=== PATIENT | male | born 1935 | race African-American/Black ===

== ENCOUNTER 2017-02-04 11:20 | Observation (INO) ==
[2017-02-04 12:23] LABS: Basophils % 0.3 %; Eosinophils # 0.2 K/mcL (0.0-0.6); Eosinophils % 1.7 %; Hematocrit 44.8 % (37.5-50.1); Hemoglobin 13.9 g/dL (12.9-16.9); Immature Granulocytes % 0.3 % (0-4); Lymphocytes # 1.8 K/mcL (0.6-4.6); Lymphocytes % 19.8 %; Mean Corpuscular Hemoglobin 25.1 pg (28.0-33.3); Mean Platelet Volume 9.2 fL (9.4-12.4); Monocytes # 0.8 K/mcL (0.0-1.3); Monocytes % 8.5 %; Neutrophils # 6.2 K/mcL (1.6-8.9); Platelet Count 241 K/mcL (140-400); Red Blood Count 5.53 M/mcL (4.19-5.50); Red Cell Distribution Width 15.1 % (11.5-14.5); Segmented Neutrophils % 69.4 %
[2017-02-04 12:36] LABS: Alanine Aminotransferase 18 Units/L (0-55); Albumin 4.1 g/dL (3.5-5.0); Albumin/Globulin Ratio 1.1 (1.1-2.2); Alkaline Phosphatase 80 Units/L (38-126); Aspartate Amino Transferase 15 Units/L (5-34); BUN/Creatinine Ratio 12 (6-26); Bilirubin,Total 0.5 mg/dL (0.2-1.2); Blood Urea Nitrogen 16 mg/dL (8-26); Calcium 10.2 mg/dL (8.6-10.8); Carbon Dioxide 25 mEq/L (19-29); Chloride 102 mEq/L (98-109); Globulin 3.8 g/dL (2.4-3.5); Glucose 158 mg/dL (70-99); Osmolality,Calculated 284 (280-300); Potassium 4.5 mEq/L (3.5-4.5); Sodium 135 mEq/L (136-145); Total Protein 7.9 g/dL (6.0-8.3); eGFR For African Americans > 60 (> 60); eGFR For Non-African Americans 51 (> 60)
[2017-02-04] MEDS ORDERED: Ipratropium/Albuterol Neb 3 ML IH ONE (12:44)
[2017-02-04] MEDS ORDERED: methylPREDNISolone 125 MG/2 ML VIAL IVP ONE (12:44)
--- NOTE | 2017-02-04 12:47 | Emergency Department Note ---
Disposition Clinical Impression: Acute exacerbation of chronic obstructive airways disease, Exertional dyspnea Disposition: Admitted As Inpatient Condition: Fair Referrals: NO,PCP [Non-Partnered Physician] - Forms: ED Satisfaction Letter Time of Disposition: 12:56 SOB HPI - General Chief Complaint: ED Shortness of Breath/Dyspnea Stated Complaint: JEFF Time Seen by Provider: 02/04/17 12:37 Source: patient Mode of arrival: ambulatory Limitations: no limitations Nursing Notes Reviewed: Yes Vital Signs Reviewed: Yes - History of Present Illness 82-year-old comes in with cough 5 months with increasing exertional dyspnea. Patient states when he walks a distance becomes very short of breath. Pt Subjective Complaint: shortness of breath, cough Onset (ago): day(s) Context: other (Patient has a history of smoking many years but stopped 20 years ago has no lung diagnosis is on no inhalers. Had a cardiac catheter 20 years ago but nothing recently been having increasing exertional dyspnea) Severity: moderate Consistency/Duration: constant Improves with: nothing Worsens with: exertion Associated symptoms: Reports: cough Treatment prior to arrival: none Cough present: Yes Cough Description: Involuntary Cough Frequency: Intermittent - Related Data Home Medications Medication Instructions Recorded Confirmed Amlodipine Besylate [Norvasc] 10 mg PO 03/03/15 03/03/15 Aspirin Enteric Coated [Aspirin EC] 03/03/15 03/03/15 GlipiZIDE [Glucotrol] 10 mg PO 03/03/15 03/03/15 Isosorbide DInitrate 03/03/15 03/03/15 Metoprolol Succinate [Toprol Xl] 03/03/15 03/03/15 Rosuvastatin Calcium [Crestor] 10 mg PO 03/03/15 03/03/15 Allergies Allergy/AdvReac Type Severity Reaction Status Date / Time No Known Allergies Allergy Verified 02/04/17 11:27 All systems ED: reviewed and negative except as stated. Constitutional: Denies: fever, chills, weakness, weight change Eyes: Denies: eye pain, eye discharge, vision change ENT ED: Denies: ear pain, throat pain, dental pain, hearing loss, epistaxis, congestion, dysphagia Cardiovascular: Denies: chest pain, palpitations, dyspnea on exertion, edema, syncope Respiratory: Reports: cough, dyspnea. Denies: wheezes, hemoptysis, stridor Gastrointestinal: Denies: abdominal pain, nausea, vomiting, diarrhea, constipation, hematemesis, melena, hematochezia Genitourinary: Denies: urgency, dysuria, frequency, hematuria Musculoskeletal: Denies: back pain, neck pain, arthralgia, myalgia Integumentary: Denies: rash, abrasion, lesions Neurological: Denies: headache, weakness, numbness, paresthesias, confusion, abnormal gait, vertigo Psychiatric: Denies: anxiety, depression, suicidal thoughts, homicidal thoughts , auditory hallucinations, visual hallucinations Endocrine: Denies: fatigue Hematological/Lymphatic: Denies: easy bleeding, easy bruising Allergic/Immunologic: Denies: facial swelling, urticaria Past Medical History - Past Medical History Medical history: Reports: coronary artery disease, diabetes, hyperlipidemia, hypertension, kidney stones, renal disease Surgical history: Reports: other Psychiatric history: Reports: no psych history - Social History Smoking Status: Former smoker Smokeless Tobacco Status: No Alcohol use: Reports: none Drug use: Reports: none Physical Exam - General Limitations: no limitations General appearance: alert - Head Head exam: atraumatic, normocephalic, normal inspection - Eye Eye exam: Present: normal appearance, PERRL, EOMI - ENT ENT exam: normal exam, normal oropharynx, mucous membranes moist - Neck Neck exam: Present: normal inspection, full ROM, trachea midline - Chest Chest inspection: Present: normal inspection, symmetric chest wall rise - Respiratory Respiratory exam: Present: wheezes - Cardiovascular Cardiovascular exam: Present: regular rate, normal rhythm, normal heart sounds - Abdominal Exam Abdominal exam: Present: soft, Non-Tender. Absent: tenderness, distention, guarding, rebound, rigidity - Extremities Exam Extremities exam: Present: normal inspection, full ROM. Absent: tenderness, pedal edema - Expanded Lower Extremity Exam Neurovascular/Tendon exam: Absent: motor deficit, sensory deficit, tendon deficit Gait: observed and normal - Back Exam Back exam: Present: normal inspection, full ROM. Absent: tenderness - Neurological Exam Neurological exam: Present: alert, oriented X3 - Psychiatric Psychiatric exam: Present: normal affect, normal mood - Skin Skin exam: Present: warm, dry, intact, normal color Course - Reevaluation(s) Reevaluation #1: 82-year-old with no long history comes in with increasing shortness of breath. On exam he does have wheezes. Chest x-ray does show COPD. Also has a component of exertional dyspnea. His initial blood pressure was elevated a repeat pressure was 157/75. Midrin for further evaluation and treatment. Time: 13:08 - Consultations Consultation #1: Discussed with Dr. Hunter, it. Time: 13:08 Vital Signs Temperature 98.4 F 02/04/17 11:27 Pulse Rate 65 02/04/17 11:27 Respiratory Rate 24 02/04/17 11:27 Blood Pressure 183/49 02/04/17 11:27 O2 Sat by Pulse Oximetry 97 02/04/17 11:27 Temperature 98.4 F 02/04/17 11:27 Pulse Rate 51 02/04/17 13:13 Respiratory Rate 16 02/04/17 13:18 Blood Pressure 154/75 02/04/17 13:13 O2 Sat by Pulse Oximetry 99 02/04/17 13:18 Oxygen Delivery Oxygen Delivery Room Air Shortness of Breath/Dyspnea - Lab Data Lab results reviewed: Yes I reviewed the patient's lab results. Result diagrams: 02/04/17 12:11 02/04/17 12:11 Lab Results 02/04/17 02/04/17 02/04/17 Range/Units 12:11 12:11 12:11 WBC 9.0 (4.3-11.1) K/mcL RBC 5.53 H (4.19-5.50) M/mcL Hgb 13.9 (12.9-16.9) g/dL Hct 44.8 (37.5-50.1) % MCV 81.0 L (83.0-100.0) fL MCH 25.1 L (28.0-33.3) pg MCHC 31.0 L (31.6-35.5) g/dL RDW 15.1 H (11.5-14.5) % Plt Count 241 (140-400) K/mcL MPV 9.2 L (9.4-12.4) fL Immature Gran % 0.3 (0-4) % Seg Neutrophils % 69.4 % Lymphocytes % 19.8 % Monocytes % 8.5 % Eosinophils % 1.7 % Basophils % 0.3 % Neutrophils # 6.2 (1.6-8.9) K/mcL Lymphocytes # 1.8 (0.6-4.6) K/mcL Monocytes # 0.8 (0.0-1.3) K/mcL Eosinophils # 0.2 (0.0-0.6) K/mcL Basophils # 0.0 (0.0-0.2) K/mcL Sodium 135 L (136-145) mEq/L Potassium 4.5 (3.5-4.5) mEq/L Chloride 102 (98-109) mEq/L Carbon Dioxide 25 (19-29) mEq/L BUN 16 (8-26) mg/dL Creatinine 1.34 H (0.72-1.25) mg/dL Est GFR ( Amer) > 60 (> 60) Est GFR (Non-Af Amer) 51 L (> 60) BUN/Creatinine Ratio 12 (6-26) Glucose 158 H (70-99) mg/dL Calculated Osmolality 284 (280-300) Calcium 10.2 (8.6-10.8) mg/dL Total Bilirubin 0.5 (0.2-1.2) mg/dL AST 15 (5-34) Units/L ALT 18 (0-55) Units/L Alkaline Phosphatase 80 (38-126) Units/L Troponin I 0.01 (0-0.03) ng/mL B-Natriuretic Peptide (0-100) pg/mL Serum Total Protein 7.9 (6.0-8.3) g/dL Albumin 4.1 (3.5-5.0) g/dL Globulin 3.8 H (2.4-3.5) g/dL Albumin/Globulin Ratio 1.1 (1.1-2.2) TSH 2.690 (0.350-4.840) mcIU/mL 02/04/17 Range/Units 12:11 WBC (4.3-11.1) K/mcL RBC (4.19-5.50) M/mcL Hgb (12.9-16.9) g/dL Hct (37.5-50.1) % MCV (83.0-100.0) fL MCH (28.0-33.3) pg MCHC (31.6-35.5) g/dL RDW (11.5-14.5) % Plt Count (140-400) K/mcL MPV (9.4-12.4) fL Immature Gran % (0-4) % Seg Neutrophils % % Lymphocytes % % Monocytes % % Eosinophils % % Basophils % % Neutrophils # (1.6-8.9) K/mcL Lymphocytes # (0.6-4.6) K/mcL Monocytes # (0.0-1.3) K/mcL Eosinophils # (0.0-0.6) K/mcL Basophils # (0.0-0.2) K/mcL Sodium (136-145) mEq/L Potassium (3.5-4.5) mEq/L Chloride (98-109) mEq/L Carbon Dioxide (19-29) mEq/L BUN (8-26) mg/dL Creatinine (0.72-1.25) mg/dL Est GFR ( Amer) (> 60) Est GFR (Non-Af Amer) (> 60) BUN/Creatinine Ratio (6-26) Glucose (70-99) mg/dL Calculated Osmolality (280-300) Calcium (8.6-10.8) mg/dL Total Bilirubin (0.2-1.2) mg/dL AST (5-34) Units/L ALT (0-55) Units/L Alkaline Phosphatase (38-126) Units/L Troponin I (0-0.03) ng/mL B-Natriuretic Peptide 58 (0-100) pg/mL Serum Total Protein (6.0-8.3) g/dL Albumin (3.5-5.0) g/dL Globulin (2.4-3.5) g/dL Albumin/Globulin Ratio (1.1-2.2) TSH (0.350-4.840) mcIU/mL - Radiology Data Radiology results reviewed: Yes I reviewed the patient's radiology results. Chest X-Ray 02/04/17 11:31 IMPRESSION: Cardiomegaly and COPD with no acute finding in the chest. D/ / Evangelist Young MD / Evangelist Young MD Interpreting Provider: Evangelist Young MD
[2017-02-04] MEDS ORDERED: Acetaminophen 325 MG TABLET PO PRN (15:39)
[2017-02-04] MEDS ORDERED: Naloxone 0.4 MG/ML INJ IVP PRN (15:39)
[2017-02-04] MEDS ORDERED: Albuterol 2.5 MG/3 ML NEBULIZER IH PRN (15:43)
[2017-02-04] MEDS ORDERED: *HR* Dextrose 50 % in Water (Syg) 50 ML SYRINGE IVP PRN (15:44)
[2017-02-04] MEDS ORDERED: Dextrose Gel 15 GM PO PRN ×2 (15:44)
[2017-02-04] MEDS ORDERED: D5% in Water 1,000 ML IVC PRN (15:44)
--- NOTE | 2017-02-04 15:50 | Internal Med History&Physical ---
Date of Encounter: 02/04/17 Time of Encounter: 15:49 Assessment and Plan (1) Acute exacerbation of chronic obstructive airways disease Current visit: Yes Status: Acute 1 patient has a past history of cigarette smoking chest x-rays indicative of chronic COPD changes. He has been experiencing increasing short of breath on exertion as well as nonproductive cough. We will continue with bronchodilators 2 oxygen as needed to maintain SPO2 greater than 92% 3 continue with steroids to taper (2) HTN (hypertension) Current visit: No Status: Chronic 1 continue with home medications Qualifiers: Hypertension type: essential hypertension Qualified Code(s): I10 - Essential (primary) hypertension (3) Diabetes mellitus Current visit: Yes Status: Acute 1 Accu-Cheks before meals at bedtime for sinus scale insulin-hold oral antidiabetic and resume at discharge Qualifiers: Diabetes mellitus type: type 2 Diabetes mellitus complication status: with kidney complications Diabetes mellitus complication detail: with chronic kidney disease Diabetes mellitus terminal supervisor insulin use: without snf use Chronic kidney disease stage: stage 2 (mild) Qualified Code(s): E11.22 - Type 2 diabetes mellitus with diabetic chronic kidney disease; N18.2 - Chronic kidney disease, stage 2 (mild) (4) CKD (chronic kidney disease) stage 2, GFR 60-89 ml/min Current visit: No Status: Chronic [place] creatinine is 1.3. Baseline is around 1.2 we will continue to monitor creatinine 2 avoid nephrotoxins (5) CAD (coronary artery disease) Current visit: No Status: Chronic 1 history of coronary disease will continue with aspirin beta margarita statin and emily Qualifiers: Coronary Disease-Associated Artery/Lesion type: [place] artery [place] vs. transplanted heart: [place] heart Associated angina: without angina Qualified Code(s): I25.10 - Atherosclerotic heart disease of [place] coronary artery without angina pectoris Internal Medicine - H&P: HPI Chief complaint: SOB Admitted From: Emergency Dept Plans for Post Hospital Care: Home History of present illness: Mr. Martin is a 82 year old male with past medical history of diabetes hypertension CK D stage III hyperlipidemia coronary artery disease. The patient has been spacing increasing shortness of breath on exertion since Friday. He also has had difficulty sleeping at night and would frequently wake up due to shortness of breath. He also has a nonproductive cough which she states has been going on for the past few months. He denies any fevers chills nausea vomiting diarrhea abdominal pain or chest pain. He does admit to some wheezing. His shortness of breath improves with rest. Today his shortness of breath has worsened and was unable to recover even with rest. He does have a past history of smoking which he states he quit 20 years ago and denies any diagnosis of COPD. He is not on any oxygen or inhalers at home. Upon presentation to the ER patient was given Solu-Medrol as well as breathing treatments which did improve his respiratory state. Lab work was unremarkable chest x-ray just showed cardiomegaly with chronic COPD findings. He has been admitted for further workup and evaluation. Presently patient does not appear to be in any respiratory distress. He is actually ambulating in his room he denies any chest pain or shortness of breath. His lung sounds are clear and diminished throughout. Heart sounds are regular S1 and S2 with no rubs clicks Murmurs Noted Abdomen Soft Nontender No Lower Extremity Edema Noted. Presently He Is Hemodynamics Stable. I Reviewed This Case with who agrees with plan. Past Med Surg Social Fam HX - Past Medical History Medical history: coronary artery disease, diabetes, hyperlipidemia, hypertension , kidney stones, renal disease Psychiatric history: no psych history - Past Surgical History Surgical History: other - Social History Smoking Status: Former smoker Smokeless Tobacco Status: No Alcohol use: none Drug use: none - Family History Mother Living Status: Cause of : [place] Hx Family Cardiac Disorders: Yes Hx Family Respiratory Disorders: No Hx Family Cancer: No Hx Family GI Disorders: No Hx Family Genitourinary Disorders: No Hx Family Endocrine Disorder: No Hx Family Musculoskeletal Disorders: No Hx Family Neuromuscular Disorders: No Hx Family Neurologic Disorders: No Hx Family HEENT Disorders: No Hx Family Autoimmune Disorders: No Hx Family Reproductive Disorders: No Hx Family Psychosocial Disorders: No Hx Family Medical Disorders: No Father Living Status: Cause of : [place] Hx Family Cardiac Disorders: Yes Hx Family Respiratory Disorders: No Hx Family Cancer: No Hx Family GI Disorders: No Hx Family Genitourinary Disorders: No Hx Family Endocrine Disorder: No Hx Family Musculoskeletal Disorders: No Hx Family Neuromuscular Disorders: No Hx Family Neurologic Disorders: No Hx Family HEENT Disorders: No Hx Family Autoimmune Disorders: No Hx Family Reproductive Disorders: No Hx Family Psychosocial Disorders: No Hx Family Medical Disorders: No Internal Medicine - H&P: Meds Amlodipine Besylate [Norvasc] 10 mg PO DAILY 03/03/15 [History] Aspirin Enteric Coated [Aspirin EC] 81 mg PO DAILY 03/03/15 [History] GlipiZIDE [Glucotrol] 10 mg PO BID 03/03/15 [History] Isosorbide DInitrate [Isosorbide Dinitrate] 10 mg PO TID 03/03/15 [History] Metoprolol Succinate [Toprol Xl] 200 mg PO DAILY 03/03/15 [History] Atorvastatin [Lipitor] 10 mg PO HS 02/04/17 [History] Benazepril HCl [Lotensin] 40 mg PO BID 02/04/17 [History] Cholecalciferol (D-3) [Vitamin D] 1,000 unit PO DAILY 02/04/17 [History] Metformin HCl [Glucophage] 1,000 mg PO BID 02/04/17 [History] Triamterene/HCTZ 37.5/25mg [Dyazide] 1 tab PO DAILY 02/04/17 [History] Allergies No Known Allergies Allergy (Verified 02/04/17 11:27) All Systems PM: A 10-system review of systems was performed and is negative for pertinent findings except as documented above in the HPI. - Constitutional Constitutional: no chills, no fever(s), no night sweats - EENT Eyes: no change in vision, no discharge, no pain, no photophobia Nose, mouth and throat: no dysphagia, no nasal discharge, no neck pain, no sore throat - Cardiovascular Cardiovascular ROS IM: dyspnea on exertion, paroxysmal nocturnal dyspnea, no chest pain, no diaphoresis, no dyspnea, no lightheadedness, no palpitations, no syncope - Respiratory Respiratory: cough, wheezing - Gastrointestinal Gastrointestinal: no abdominal pain, no diarrhea, no hematemesis, no hematochezia, no melena, no nausea, no vomiting - Musculoskeletal Musculoskeletal ROS IM: no numbness, no tingling - Integumentary Integumentary IM: no rash, no unusual bruising - Neurological Neurological ROS: no confusion, no convulsions, no focal weakness, no numbness, no tingling, no tremor(s) - Hematologic/Lymphatic Hematologic/Lymphatic: no easy bruising - Constitutional Vitals: Temp Pulse Resp BP Pulse Ox 98.3 F 55 16 156/80 98 02/04/17 15:23 07/11/17 15:23 02/04/17 15:23 02/04/17 15:23 02/04/17 15:23 General appearance: Present: A&O X 3, answers questions appropriately - Head Head exam: Present: atraumatic, normocephalic - Eye Eye exam: Present: PERRL, conjuntiva pink, sclera anicteric Pupils: Present: PERRL - Neck Neck exam general surgery: Present: supple, trachea midline. Absent: lymphadenopathy - Respiratory Respiratory exam: Present: decreased breath sounds, CTAB. Absent: accessory muscle use, rales, rhonchi, wheezes - Cardiovascular Cardiovascular exam: Present: RRR, +S1, +S2. Absent: diastolic murmur, gallop, rubs, systolic murmur - GI/Abdominal GI/Abdominal exam: Present: normal bowel sounds, soft, no peritoneal signs. Absent: distended, tenderness - Extremities Exam Extremities exam: Present: warm, radial pulses palpable and symetrical. Absent : calf tenderness, cyanotic, pedal edema - Neurological Exam Neurological exam: Present: CN II-XII intact, oriented X3, no focal deficits. Absent: pronater drift, facial droop, speech deficit - Skin Skin exam: Present: dry, intact Internal Med - H&P Results - Labs CBC & Chem 7: 02/04/17 12:11 02/04/17 12:11 - Diagnostic Studies Other Images Additional comments: Chest X-Ray 02/04/17 11:31 IMPRESSION: Cardiomegaly and COPD with no acute finding in the chest. D/ / Evangelist Young MD / Evangelist Young MD Interpreting Provider: Evangelist Young MD - VTE Reasons for not Prescribing Prophylaxis: Treatment not Indicated - Low risk for VTE
[2017-02-04] MEDS: Ipratropium/Albuterol Neb 3 ML IH SCH ×2 (16:24→22:09)
[2017-02-04] MEDS: Insulin LISPRO 300 UNITS/3 ML VIAL SQ SCH ×2 (17:49→20:07)
[2017-02-04] MEDS: Lisinopril 20 MG TABLET PO SCH (20:02)
[2017-02-05 01:57] LABS: Basophils % 0.1 %; Hematocrit 42.8 % (37.5-50.1); Hemoglobin 13.7 g/dL (12.9-16.9); Immature Granulocytes % 0.5 % (0-4); Lymphocytes # 1.1 K/mcL (0.6-4.6); Lymphocytes % 8.5 %; Mean Corpuscular Hemoglobin 25.7 pg (28.0-33.3); Mean Corpuscular Volume 80.3 fL (83.0-100.0); Mean Platelet Volume 9.9 fL (9.4-12.4); Monocytes # 0.1 K/mcL (0.0-1.3); Monocytes % 0.8 %; Neutrophils # 11.8 K/mcL (1.6-8.9); Platelet Count 239 K/mcL (140-400); Red Blood Count 5.33 M/mcL (4.19-5.50); Segmented Neutrophils % 90.1 %
[2017-02-05 02:14] LABS: BUN/Creatinine Ratio 15 (6-26); Blood Urea Nitrogen 19 mg/dL (8-26); Calcium 10.1 mg/dL (8.6-10.8); Carbon Dioxide 21 mEq/L (19-29); Chloride 100 mEq/L (98-109); Chol/HDL Ratio 4.5 (0-4.9); Cholesterol 156 mg/dL (< 200); Glucose 259 mg/dL (70-99); HDL Cholesterol 35 mg/dL (40-59); LDL Cholesterol,Calculated 106 mg/dL (0-99); Magnesium 1.8 mg/dL (1.6-2.6); Osmolality,Calculated 287 (280-300); Potassium 3.7 mEq/L (3.5-4.5); Sodium 133 mEq/L (136-145); Triglycerides 76 mg/dL (< 150); eGFR For African Americans > 60 (> 60); eGFR For Non-African Americans 52 (> 60)
[2017-02-05] MEDS: Ipratropium/Albuterol Neb 3 ML IH SCH ×5 (04:43→23:10)
[2017-02-05] MEDS: Cholecalciferol (D-3) 1,000 UNIT TABLET PO SCH (08:20)
[2017-02-05] MEDS: Lisinopril 20 MG TABLET PO SCH ×2 (08:20→20:12)
[2017-02-05] MEDS: amLODIPine 5 MG TABLET PO SCH (08:20)
[2017-02-05] MEDS: Aspirin Enteric Coated 81 MG Tablet PO SCH (08:20)
[2017-02-05] MEDS: Metoprolol XL (24 HR) Succ 50 MG TAB.ER.24H PO SCH (08:20)
[2017-02-05] MEDS: Insulin LISPRO 300 UNITS/3 ML VIAL SQ SCH ×4 (08:21→21:51)
[2017-02-05] MEDS ORDERED: predniSONE 20 MG TABLET PO SCH (09:00)
--- NOTE | 2017-02-05 11:28 | Electrocardiograph Report ---
[address] [address] Test Date: 2017-02-04 Pat Name: Benito Martin Department: 105 Room: 3B44 Gender: M Supervisor [employer]: FABIAN : 1935 Requested By: Vaughn Ramirez Order Number: [id number] Reading MD: Yulia Melendez Measurements Intervals [place] Rate: 58 P: 40 VT: 191 QRS: -60 QRSD: 134 T: 31 QT: 381 QTc: 377 Interpretive Statements SINUS BRADYCARDIA INTRAVENTRICULAR CONDUCTION DELAY [130+ ms QRS DURATION] MODERATE VOLTAGE CRITERIA FOR LVH, CONSIDER NORMAL VARIANT Electronically Signed On 02-05-2017 11:26:33 EDT by Yulia Melendez
--- NOTE | 2017-02-05 17:46 | Internal Med Progress Note ---
Date of Encounter: 02/05/17 Time of Encounter: 10:45 - Assessment and plan (1) Exertional dyspnea Current Visit: Yes Status: Acute Assessment and plan: Unclear causation at this time. Patient stopped smoking in 1989 and has not been officially diagnosed with COPD. On examination, his aeration is poor. We will treat with bronchodilators and steroids. Will also obtain echocardiogram, no echocardiogram noted on file. Patient also stating he is having trouble taking a deep breath stating that he has to yawn in order to take a deep breath , consistent with possible pleurisy, will add NSAIDs and monitor his response. ITS Impressions Chest X-Ray 02/04/17 11:31 IMPRESSION: Cardiomegaly and COPD with no acute finding in the chest. D/ / Evangelist Young MD / Evangelist Young MD Interpreting Provider: Evangelist Young MD (2) Acute exacerbation of chronic obstructive airways disease Current Visit: Yes Status: Suspected (3) CKD (chronic kidney disease) stage 3, GFR 30-59 ml/min Current Visit: Yes Status: Chronic Assessment and plan: Stable, consistent with his baseline, will trend (4) HTN (hypertension) Current Visit: No Status: Chronic Assessment and plan: Hypertensive at times however currently normotensive, will continue to trend and adjust medications as indicated. Qualifiers: Hypertension type: essential hypertension Qualified Code(s): I10 - Essential (primary) hypertension (5) Diabetes mellitus Current Visit: Yes Status: Chronic Assessment and plan: Controlled at home with a recent A1c of 7.0%. Continue sliding scale while admitted. Qualifiers: Diabetes mellitus type: type 2 Diabetes mellitus complication status: with kidney complications Diabetes mellitus complication detail: with chronic kidney disease Diabetes mellitus jail insulin use: without jail use Chronic kidney disease stage: stage 3 (moderate) Qualified Code(s): E11.22 - Type 2 diabetes mellitus with diabetic chronic kidney disease; N18.3 - Chronic kidney disease, stage 3 (moderate) (6) CAD (coronary artery disease) Current Visit: No Status: Chronic Qualifiers: Coronary Disease-Associated Artery/Lesion type: [place] artery [place] vs. transplanted heart: [place] heart Associated angina: without angina Qualified Code(s): I25.10 - Atherosclerotic heart disease of [place] coronary artery without angina pectoris - Subjective Interval history: Patient seen and examined. On examination, patient sitting upright in his chair. Patient stating he is intermittently experiencing shortness of breath. He states he is eating well and denies concerns at this time. He denies pain. - Constitutional Vitals: Temp Pulse Resp BP Pulse Ox 98 F 63 15 159/77 100 02/05/17 16:01 02/05/17 16:01 02/05/17 16:01 02/05/17 16:01 02/05/17 16:01 General appearance: Present: A&O X 3, pleasant, no acute distress, answers questions appropriately - Head Head exam: Present: atraumatic, normocephalic - Eye Eye exam: Present: PERRL, conjuntiva pink, sclera anicteric Pupils: Present: PERRL - Neck Neck exam general surgery: Present: supple, trachea midline. Absent: lymphadenopathy - Respiratory Respiratory exam: Present: decreased breath sounds. Absent: accessory muscle use, rales, respiratory distress, rhonchi, wheezes - Cardiovascular Cardiovascular exam: Present: RRR, +S1, +S2. Absent: diastolic murmur, gallop, rubs, systolic murmur - GI/Abdominal GI/Abdominal exam: Present: normal bowel sounds, soft, no peritoneal signs. Absent: distended, tenderness - Extremities Exam Extremities exam: Present: warm, radial pulses palpable and symetrical. Absent : calf tenderness, cyanotic, pedal edema - Neurological Exam Neurological exam: Present: alert, CN II-XII intact, oriented X3, no focal deficits, strengths equal and symetr throughout. Absent: pronater drift, facial droop, speech deficit - Skin Skin exam: Present: dry, intact, normal color, warm Internal Medicine: Result - Labs CBC & Chem 7: 02/05/17 01:36 02/05/17 01:36 Labs: Short CBC 02/05/17 Range/Units 01:36 WBC 13.1 H (4.3-11.1) K/mcL Hgb 13.7 (12.9-16.9) g/dL Hct 42.8 (37.5-50.1) % Plt Count 239 (140-400) K/mcL Neutrophils # 11.8 H (1.6-8.9) K/mcL BMP 02/05/17 01:36 Sodium 133 L Potassium 3.7 Chloride 100 Carbon Dioxide 21 BUN 19 Creatinine 1.31 H Glucose 259 H Calcium 10.1 Cardiac Enzymes 02/04/17 02/05/17 Range/Units 18:32 01:36 Troponin I 0.01 0.03 (0-0.03) ng/mL - VTE Reasons for not Prescribing Prophylaxis: Treatment not Indicated - Low risk for VTE Consult Discharge Plan - Plan Referrals: Alfred Sultana MD [Primary Care Provider] -
[2017-02-05] MEDS: MethylPREDNISolone 40 MG/ML VIAL IVP SCH (18:07)
[2017-02-05] MEDS: Ketorolac 15 MG/ML VIAL IVP SCH ×2 (18:29→23:31)
[2017-02-06] MEDS: Ipratropium/Albuterol Neb 3 ML IH SCH ×2 (04:40→07:45)
[2017-02-06 06:34] LABS: Basophils % 0.1 %; Hematocrit 42.5 % (37.5-50.1); Hemoglobin 13.4 g/dL (12.9-16.9); Immature Granulocytes % 0.7 % (0-4); Lymphocytes # 1.2 K/mcL (0.6-4.6); Lymphocytes % 7.9 %; Mean Corpuscular HGB Conc 31.5 g/dL (31.6-35.5); Mean Corpuscular Hemoglobin 25.4 pg (28.0-33.3); Mean Corpuscular Volume 80.5 fL (83.0-100.0); Monocytes # 0.6 K/mcL (0.0-1.3); Monocytes % 3.5 %; Neutrophils # 13.8 K/mcL (1.6-8.9); Platelet Count 257 K/mcL (140-400); Red Blood Count 5.28 M/mcL (4.19-5.50); Red Cell Distribution Width 15.4 % (11.5-14.5); Segmented Neutrophils % 87.8 %
[2017-02-06] MEDS: MethylPREDNISolone 40 MG/ML VIAL IVP SCH (06:47)
[2017-02-06] MEDS: Ketorolac 15 MG/ML VIAL IVP SCH ×2 (06:47→12:36)
[2017-02-06 06:58] LABS: BUN/Creatinine Ratio 19 (6-26); Blood Urea Nitrogen 25 mg/dL (8-26); Carbon Dioxide 24 mEq/L (19-29); Chloride 100 mEq/L (98-109); Glucose 220 mg/dL (70-99); Osmolality,Calculated 285 (280-300); Sodium 132 mEq/L (136-145); eGFR For African Americans > 60 (> 60); eGFR For Non-African Americans 52 (> 60)
[2017-02-06 07:00] LABS: Potassium 4.9 mEq/L (3.5-4.5)
[2017-02-06] MEDS: Cholecalciferol (D-3) 1,000 UNIT TABLET PO SCH (08:25)
[2017-02-06] MEDS: amLODIPine 5 MG TABLET PO SCH (08:25)
[2017-02-06] MEDS: Lisinopril 20 MG TABLET PO SCH (08:25)
[2017-02-06] MEDS: Aspirin Enteric Coated 81 MG Tablet PO SCH (08:25)
[2017-02-06] MEDS: Insulin LISPRO 300 UNITS/3 ML VIAL SQ SCH ×2 (08:26→12:35)
[2017-02-06] MEDS: Metoprolol XL (24 HR) Succ 50 MG TAB.ER.24H PO SCH (08:27)
[2017-02-06] MEDS ORDERED: Ipratropium/Albuterol Neb 3 ML IH SCH (10:00)
[2017-02-06 12:06] VITALS: BP 155/74
--- NOTE | 2017-02-06 13:11 | Discharge Summary ---
Date of Encounter: 02/06/17 Time of Encounter: 10:00 - Discharge Diagnosis (1) Exertional dyspnea Priority: Primary Status: Resolved Comments: Unclear causation but patient's symptoms resolved after he was treated with bronchodilators and steroids. Suspect undiagnosed COPD but heart failure and Pleurisy were also possible. Echocardiogram revealing ejection fraction of 45- 50% with regional wall motion abnormalities and mild diastolic dysfunction. Patient euvolemic on examination-heart failure unlikely. He also improved with NSAID administration-he states he is not able to take deep breaths consistent with pleurisy. We will treat with both bronchodilators, steroid taper, and NSAIDs and have him follow-up outpatient with his primary care provider. He was able to ambulate and perform ADLs independently. (2) Acute exacerbation of chronic obstructive airways disease Priority: Primary Status: Suspected (3) CKD (chronic kidney disease) stage 3, GFR 30-59 ml/min Priority: Secondary Status: Chronic Comments: Remained stable and consistent with his baseline (4) HTN (hypertension) Priority: Secondary Status: Chronic Comments: Borderline hypertensive at times, recommend daily blood pressure checks at home , keeping a log, and following up outpatient. Qualifiers: Hypertension type: essential hypertension Qualified Code(s): I10 - Essential (primary) hypertension (5) Diabetes mellitus Priority: Secondary Status: Chronic Comments: Controlled at home with a recent A1c of 7.0%. Continue follow-up outpatient. Qualifiers: Diabetes mellitus type: type 2 Diabetes mellitus complication status: with kidney complications Diabetes mellitus complication detail: with chronic kidney disease Diabetes mellitus nursing home insulin use: without nursing home use Chronic kidney disease stage: stage 3 (moderate) Qualified Code(s): E11.22 - Type 2 diabetes mellitus with diabetic chronic kidney disease; N18.3 - Chronic kidney disease, stage 3 (moderate) (6) CAD (coronary artery disease) Priority: Secondary Status: Chronic Qualifiers: Coronary Disease-Associated Artery/Lesion type: [place] artery [place] vs. transplanted heart: [place] heart Associated angina: without angina Qualified Code(s): I25.10 - Atherosclerotic heart disease of [place] coronary artery without angina pectoris - Discharge Medications Prescriptions: Albuterol Sulfate [Albuterol Inhaler] 2 puff IH Q4HR PRN #1 hfa.aer.ad PRN Reason: Shortness Of Breath Budesonide/Formoterol 80/4.5 [Symbicort 80/4.5] 1 puff IH BID #1 hfa.aer.ad Ibuprofen [Motrin] 600 mg PO TID #15 tab predniSONE [PredniSONE] 10 mg PO DAILY #34 tablet Home Medications: Amlodipine Besylate [Norvasc] 10 mg PO DAILY 03/03/15 [History] Aspirin Enteric Coated [Aspirin EC] 81 mg PO DAILY 03/03/15 [History] GlipiZIDE [Glucotrol] 10 mg PO BID 03/03/15 [History] Isosorbide DInitrate [Isosorbide Dinitrate] 10 mg PO TID 03/03/15 [History] Metoprolol Succinate [Toprol Xl] 200 mg PO DAILY 03/03/15 [History] Benazepril HCl [Lotensin] 40 mg PO BID 02/04/17 [History] Cholecalciferol (D-3) [Vitamin D] 1,000 unit PO DAILY 02/04/17 [History] Metformin HCl [Glucophage] 1,000 mg PO BID 02/04/17 [History] Triamterene/HCTZ 37.5/25mg [Dyazide] 1 tab PO DAILY 02/04/17 [History] Albuterol Sulfate [Albuterol Inhaler] 2 puff IH Q4HR PRN #1 hfa.aer.ad 02/06/17 [Rx] Budesonide/Formoterol 80/4.5 [Symbicort 80/4.5] 1 puff IH BID #1 hfa.aer.ad [Rx] Ibuprofen [Motrin] 600 mg PO TID #15 tab 02/06/17 [Rx] predniSONE [PredniSONE] 10 mg PO DAILY #34 tablet 02/06/17 [Rx] Allergies/Adverse Reactions: Allergies No Known Allergies Allergy (Verified 02/04/17 11:27) Procedures/tests Complete & Pending: Procedures Performed prior 72 hours Category Date Time Status CT chest wo con [CT] Routine Cat Scan 02/05/17 19:00 Completed EV echocardiogram Routine Y 02/06/17 17:49 Completed Date of admission: 02/04/17 14:09 Primary care physician: Alfred Sultana MD Consults: 02/04/17 15:45 Consult to Utilities Service Investigator [CONS] Routine Reason for SW Consult: possible need for home resources. currently only has meals on wheels. Discharging clinician: Kavya Gonzalez Anticipated date of discharge: 02/06/17 - Patient Status Disposition: Home, Self-Care Condition: Fair Functional capacity at discharge: independent ambulation Overall status at discharge: patient is back to baseline - Discharge Instructions Follow Up With: Alfred Sultana MD [Primary Care Provider] - 02/13/17 3:15 pm Additional Instructions: Follow-up with primary care provider as scheduled - Diet and Activity Activity: increase activity as tolerated Diet: diabetic diet, low fat, low cholesterol, low salt diet Hospital course: Mr. Martin is a 82 year old male with past medical history of diabetes, hypertension, chronic kidney disease stage III, hyperlipidemia, CAD, former heavy tobacco abuse. Patient presented to the emergency department chief complaint of increasing shortness of breath with exertion 2 days. Patient also had difficulty sleeping at night and would frequently wake up due to shortness of breath. Patient also endorsed a nonproductive cough which he states he has had for the past few months prior to presentation. He denied any fevers, chills, nausea vomiting or diarrhea. He denied chest pain. He stopped smoking approximately 20 years ago and denied any official diagnosis of COPD. He is not on any controller medications at home. Workup in the emergency department revealing chronic cardiomegaly and COPD on the chest x-ray otherwise unremarkable. Patient was admitted to the hospitalist service for further evaluation and management. Regarding his dyspnea on exertion, patient stating he had been feeling this way for longer than 2 days. He was unable to quantify however. Chest CT was obtained which was unremarkable. On examination, his breath sounds were poor initially and he was started on bronchodilators and steroids and his aeration much improved. Echocardiogram was also obtained which revealed an ejection fraction of 45-50% with regional wall motion abnormalities and mild diastolic dysfunction. Patient was euvolemic on examination and denied chest pain throughout this admission. Recommend close outpatient follow-up with primary care provider with possible referral to cardiology as warranted outpatient. Another possibility would be pleurisy given that the patient was unable to take deep breaths. He was also treated with NSAIDs. He was admitted and observed over the course of 2 nights and on day of discharge, he was ambulatory around the unit and independent with his ADLs and back to his baseline. He was sent on Symbicort, albuterol as needed, prednisone taper, and 5 days of ibuprofen. He was offered a cardiology consult to establish with our cardiology service as he has not seen a nursing informatics analyst since the , but he stated he wanted to speak to his PCP first. He was discharged home in stable condition with close outpatient follow-up recommended. ITS Impressions Chest X-Ray 02/04/17 11:31 IMPRESSION: Cardiomegaly and COPD with no acute finding in the chest. D/ / Evangelist Young MD / Evangelist Young MD Interpreting Provider: Evangelist Young MD Chest CT 02/05/17 19:00 IMPRESSION: No acute abnormality within the chest. D/ / Chucky Grossman MD / Chucky Grossman MD Interpreting Provider: Chucky Grossman MD Echocardiogram impressions: Mildly dilated left ventricle. Mild LV systolic dysfunction, LVEF 45-50%. There are regional wall motion abnormalities, see diagram. Mild left ventricular diastolic dysfunction. Normal right ventricular size and function. Moderately dilated left atrium. Mild mitral regurgitation. Unable to estimate RVSP due to lack of TR jet. - Time Spent with Patient Total time spent providing and/or coordinating discharge services: - Constitutional Vitals: Temp Pulse Resp BP Pulse Ox 97.8 F 70 17 155/74 97 02/06/17 12:05 02/06/17 12:05 02/06/17 12:05 02/06/17 12:05 02/06/17 12:05 General appearance: Present: A&O X 3, pleasant, no acute distress, answers questions appropriately - Head Head exam: Present: atraumatic, normocephalic - Eye Eye exam: Present: PERRL, conjuntiva pink, sclera anicteric Pupils: Present: PERRL - Neck Neck exam general surgery: Present: supple, trachea midline. Absent: lymphadenopathy - Respiratory Respiratory exam: Present: decreased breath sounds. Absent: accessory muscle use, rales, respiratory distress, rhonchi, wheezes - Cardiovascular Cardiovascular exam: Present: RRR, +S1, +S2. Absent: diastolic murmur, gallop, rubs, systolic murmur - GI/Abdominal GI/Abdominal exam: Present: normal bowel sounds, soft, no peritoneal signs. Absent: distended, tenderness - Extremities Exam Extremities exam: Present: warm, radial pulses palpable and symetrical. Absent : calf tenderness, cyanotic, pedal edema - Neurological Exam Neurological exam: Present: alert, CN II-XII intact, normal gait, oriented X3, no focal deficits, strengths equal and symetr throughout. Absent: pronater drift, facial droop, speech deficit - Skin Skin exam: Present: dry, intact, normal color, warm - VTE Reasons for not Prescribing Prophylaxis: Treatment not Indicated - Low risk for VTE
== END 2017-02-06 14:32 | disposition home or self-care (01) ==
LOC: 3BNU 11:20 → EMEROO 11:20 → SUATTDRO 14:09 → 3BNU 14:45
PROVIDERS: ADMIT Registered Nurse; ATTEND Nurse Practitioner Family

== ENCOUNTER 2020-11-20 12:44 | Inpatient (IN) ==
[2020-11-20] MEDS ORDERED: 0.9 % Sodium Chloride 1,000 ML IVC ONE ×2 (13:00→14:43)
[2020-11-20 13:28] LABS: VBG HCO3 15 mEq/L (21-27); VBG PCO2 35 mmHg (41-51); VBG PH 7.23 pH Units (7.32-7.42); VBG PO2 45 mmHg (25-50)
[2020-11-20] MEDS ORDERED: Azithromycin 500 MG in D5% in Water 250 ML IVPB ONE (13:33)
[2020-11-20] MEDS ORDERED: cefTRIAXone 1,000 MG in Water for inj. (sterile) 10 ML IVP ONE (13:33)
[2020-11-20 13:38] LABS: Basophils % 0.2 %; Immature Granulocytes % 0.5 % (0-4); Lymphocytes # 0.7 K/mcL (0.6-4.6); Lymphocytes % 5.7 %; Mean Corpuscular HGB Conc 30.2 g/dL (31.6-35.5); Mean Corpuscular Hemoglobin 23.6 pg (28.0-33.3); Mean Corpuscular Volume 78.2 fL (83.0-100.0); Mean Platelet Volume 10.2 fL (9.4-12.4); Monocytes # 0.5 K/mcL (0.0-1.3); Monocytes % 4.7 %; Neutrophils # 10.1 K/mcL (1.6-8.9); Platelet Count 210 K/mcL (140-400); Red Cell Distribution Width 17.2 % (11.5-14.5); Segmented Neutrophils % 88.9 %; White Blood Count 11.4 K/mcL (4.3-11.1)
[2020-11-20 13:52] LABS: Albumin 4.2 g/dL (3.5-5.7); Bilirubin,Direct 0.2 mg/dL (0.0-0.2); Bilirubin,Indirect 0.3 mg/dL (0.0-1.0); Bilirubin,Total 0.5 mg/dL (0.3-1.0); Calcium 9.6 mg/dL (8.6-10.3); Globulin 4.1 g/dL (2.4-3.5); Magnesium 2.8 mg/dL (1.6-2.6); Phosphorous 7.2 mg/dL (2.7-4.5); Potassium 5.1 mEq/L (3.5-5.1); Total Protein 8.3 g/dL (6.4-8.9); Troponin I 1.17 ng/mL (< 0.04)
[2020-11-20 13:53] LABS: Beta-Hydroxybutyric Acid > 2.00 mmol/L (0.02-0.27); Procalcitonin 7.03 ng/mL (0.00-0.15)
[2020-11-20] MEDS ORDERED: *HR* Heparin 5,000 UNIT/ML VIAL IVP PRN ×2 (14:20)
[2020-11-20] MEDS ORDERED: *HR* Heparin 5,000 UNIT/ML VIAL IVP ONE (14:20)
[2020-11-20] MEDS ORDERED: Heparin 25,000UNIT/250ML 1/2NS 25,000 UNIT/250 ML IV.SOLN IVC SCH (14:30)
[2020-11-20] MEDS ORDERED: 0.9 % Sodium Chloride 1,000 ML IVC SCH ×2 (14:30→17:45)
[2020-11-20] MEDS ORDERED: Aspirin 81 MG TAB.CHEW PO ONE (14:42)
[2020-11-20 15:17] LABS: VBG HCO3 14 mEq/L (21-27); VBG PCO2 33 mmHg (41-51); VBG PH 7.25 pH Units (7.32-7.42); VBG PO2 58 mmHg (25-50)
[2020-11-20 15:23] LABS: Hematocrit 40.1 % (37.5-50.1); Hemoglobin 12.2 g/dL (12.9-16.9); Mean Corpuscular HGB Conc 30.4 g/dL (31.6-35.5); Mean Corpuscular Hemoglobin 24.1 pg (28.0-33.3); Mean Corpuscular Volume 79.2 fL (83.0-100.0); Platelet Count 185 K/mcL (140-400); Red Blood Count 5.06 M/mcL (4.19-5.50); Red Cell Distribution Width 17.2 % (11.5-14.5)
[2020-11-20 15:30] LABS: Heparin anti-factor XA UFH 0.04 IU/mL (0.30-0.70)
[2020-11-20 15:31] LABS: INR 1.1; Prothrombin Time 13.2 Seconds (9.4-12.1)
[2020-11-20 15:44] LABS: Bilirubin,Urine Negative (Negative); Blood,Urine Large (Negative); Clarity,Urine Turbid (Clear); Color,Urine Yellow (Yellow); Glucose,Urine (UA) Normal (Normal); Hyaline Casts,Urine Few per lpf (None Seen); Ketones,Urine Negative (Negative); Leukocyte Esterase,Urine Negative (Negative); Mucus,Urine Few per lpf (None-Few); Nitrite,Urine Negative (Negative); PH,Urine 5.5 pH Units (5.0-8.0); Protein,Urine 200 mg/dL (Neg-Trace); Renal Epithelial Cells,Urine Few per hpf (None-Few); Specific Gravity,Urine 1.016 (1.010-1.025); Squamous Epithelial Cell,Urine Few per hpf (None-Few); Transitional Epi Cells,Urine Few per hpf (None-Few); Urobilinogen,Urine Normal (Normal); WBC,Urine 15-30 per hpf (0-3)
[2020-11-20] MEDS ORDERED: Naloxone 0.4 MG/ML INJ IVP PRN ×2 (16:21→18:24)
[2020-11-20] MEDS ORDERED: Acetaminophen 325 MG TABLET PO PRN (16:21)
[2020-11-20] MEDS ORDERED: Melatonin 3 MG TABLET PO PRN (16:21)
[2020-11-20] MEDS ORDERED: *HR* Dextrose 50 % in Water (Vial) 50 ML VIAL IVP PRN ×2 (16:28→18:33)
[2020-11-20] MEDS ORDERED: Insulin Regular, Human 100 UNIT/ML IV PRN (16:28)
[2020-11-20] MEDS: Ipratropium/Albuterol Neb 3 ML IH SCH ×2 (17:11→19:41)
[2020-11-20] MEDS ORDERED: *HR* Metoprolol 5 MG/5 ML VIAL IVP ONE (17:17)
[2020-11-20] MEDS ORDERED: Potassium Chloride 20 MEQ, Lidocaine 1% 2 ML in 0.9 % Sodium Chloride 250 ML IVPB ONE (17:23)
[2020-11-20] MEDS ORDERED: D5% in 0.45% NACL 1,000 ML IVC PRN (17:49)
[2020-11-20] MEDS ORDERED: D5% in 0.45% NACL w KCl 20 MEQ/1,000 ML MLS IVC PRN (17:49)
[2020-11-20] MEDS ORDERED: Piperacillin/Tazobactam 3.375 GM in 0.9 % Sodium Chloride Mini Bag 100 ML IVP SCH (18:00)
[2020-11-20] MEDS ORDERED: Dextrose Gel 15 GM/37.5 ML TUBE PO PRN ×2 (18:33)
[2020-11-20] MEDS ORDERED: D5% in Water 1,000 ML IVC PRN (18:33)
[2020-11-20] MEDS ORDERED: Albumin 25% 25gram/100mL 25 GM/100 ML IV.SOLN IVPB ONE (18:36)
[2020-11-20] MEDS ORDERED: Vancomycin 2,000 MG/520 ML IV.SOLN IVPB SCH (19:00)
[2020-11-20] MEDS ORDERED: cefTRIAXone 2,000 MG in Water for inj. (sterile) 20 ML IVP SCH (19:00)
[2020-11-20] MEDS ORDERED: Amiodarone Premix 150 MG/100 ML BAG IVPB ONE (20:24)
[2020-11-20] MEDS: Ipratropium 1 PUFF INHALER IH SCH (20:42)
[2020-11-20] MEDS ORDERED: Amiodarone Premix 360 MG/200 ML BAG IVC ONE (20:42)
[2020-11-20] MEDS: Budesonide/Formoterol 80/4.5 1 PUFF INH IH SCH (20:43)
[2020-11-20] MEDS: *HR* Metoprolol 5 MG/5 ML VIAL IVP PRN ×2 (21:00→21:55)
[2020-11-20] MEDS ORDERED: Budesonide/Formoterol 80/4.5 1 PUFF INH IH SCH (21:00)
[2020-11-20] MEDS: Insulin LISPRO 300 UNITS/3 ML VIAL SUBQ SCH (21:16)
[2020-11-20] MEDS: Pantoprazole 40 MG VIAL IVP SCH (21:24)
[2020-11-20] MEDS: Piperacillin/Tazobactam 3.375 GM in 0.9 % Sodium Chloride Mini Bag 100 ML IVPB SCH (21:24)
[2020-11-20] MEDS ORDERED: Dexmedetomidine HCl 400 MCG/100 ML MLS IVC ONE (21:48)
[2020-11-20] MEDS: Dexmedetomidine HCl 400 MCG/100 ML MLS IVC SCH (21:55)
[2020-11-20] MEDS ORDERED: *HR* LORazepam 2 MG/ML VIAL IVP ONE (22:06)
[2020-11-20 22:12] LABS: Albumin 3.9 g/dL (3.5-5.7); Albumin/Globulin Ratio 1.1 (1.1-2.2); Bilirubin,Total 0.5 mg/dL (0.3-1.0); Calcium 8.9 mg/dL (8.6-10.3); Globulin 3.6 g/dL (2.4-3.5); Potassium 5.2 mEq/L (3.5-5.1); Total Protein 7.5 g/dL (6.4-8.9)
[2020-11-21] MEDS: Ipratropium 1 PUFF INHALER IH SCH ×4 (00:15→13:13)
[2020-11-21] MEDS: Ipratropium/Albuterol Neb 3 ML IH SCH ×4 (00:16→13:14)
[2020-11-21] MEDS: Insulin LISPRO 300 UNITS/3 ML VIAL SUBQ SCH ×3 (00:20→08:37)
[2020-11-21] MEDS ORDERED: Amiodarone Premix 360 MG/200 ML BAG IVC SCH (02:25)
[2020-11-21] MEDS ORDERED: Dexamethasone 10 MG/ML VIAL ONE (02:27)
[2020-11-21] MEDS ORDERED: Calcium Gluconate 1gm/50mL 1 GM/50 ML BAG IVPB ONE (02:30)
[2020-11-21] MEDS: Dexmedetomidine HCl 400 MCG/100 ML MLS IVC SCH ×3 (02:33→12:37)
[2020-11-21 06:00] LABS: Basophils % 0.2 %; Hematocrit 42.9 % (37.5-50.1); Hemoglobin 13.2 g/dL (12.9-16.9); Lymphocytes # 0.5 K/mcL (0.6-4.6); Lymphocytes % 3.9 %; Mean Corpuscular HGB Conc 30.8 g/dL (31.6-35.5); Mean Corpuscular Hemoglobin 23.9 pg (28.0-33.3); Mean Corpuscular Volume 77.6 fL (83.0-100.0); Monocytes # 0.3 K/mcL (0.0-1.3); Monocytes % 2.5 %; Neutrophils # 10.6 K/mcL (1.6-8.9); Platelet Count 194 K/mcL (140-400); Red Blood Count 5.53 M/mcL (4.19-5.50); Red Cell Distribution Width 18.1 % (11.5-14.5); Segmented Neutrophils % 92.4 %; White Blood Count 11.5 K/mcL (4.3-11.1)
[2020-11-21] MEDS: Piperacillin/Tazobactam 3.375 GM in 0.9 % Sodium Chloride Mini Bag 100 ML IVPB SCH (06:03)
[2020-11-21 06:16] LABS: Albumin 3.7 g/dL (3.5-5.7); Albumin/Globulin Ratio 1.1 (1.1-2.2); Bilirubin,Total 0.4 mg/dL (0.3-1.0); Calcium 8.8 mg/dL (8.6-10.3); Globulin 3.3 g/dL (2.4-3.5); Magnesium 2.7 mg/dL (1.6-2.6)
[2020-11-21 06:45] LABS: Troponin I 1.65 ng/mL (< 0.04)
[2020-11-21] MEDS ORDERED: Perflutren Lipid Microsphere 1.3 ML in 0.9 % Sodium Chloride 8.7 ML IVP PRN (07:40)
[2020-11-21] MEDS: Budesonide/Formoterol 80/4.5 1 PUFF INH IH SCH (07:53)
[2020-11-21] MEDS: Pantoprazole 40 MG VIAL IVP SCH (08:08)
[2020-11-21] MEDS ORDERED: Aspirin Enteric Coated 81 MG Tablet PO SCH (09:00)
[2020-11-21] MEDS ORDERED: Vancomycin 1,250 MG/262.5 ML IV.SOLN IVPB ONE (10:30)
[2020-11-21 11:15] VITALS: BP 89/57
[2020-11-21] MEDS ORDERED: *HR* FentaNYL (PF) 100 MCG/2 ML VIAL IVP PRN ×2 (11:39→11:40)
[2020-11-21] MEDS ORDERED: Azithromycin 500 MG in 0.9 % Sodium Chloride 250 ML IVPB SCH (15:00)
[2020-11-21] MEDS ORDERED: Piperacillin/Tazobactam 3.375 GM in 0.9 % Sodium Chloride Mini Bag 100 ML IVPB SCH (18:00)
[2020-11-22] MEDS ORDERED: Dexamethasone Sodium Phos/PF 10 MG/ML VIAL IVP SCH (09:00)
== END 2020-11-21 13:32 | disposition expired | DRG 871 ==
LOC: EMEROOARM 12:44 → SUATTDRO 17:55 → 2NNU 17:55 → ICNU 18:01
PROVIDERS: ADMIT Family Medicine; ATTEND Internal Medicine